=== PATIENT | male | born 1985 | race Caucasian/White ===

== ENCOUNTER 2020-11-18 18:52 | Emergency (ER) | payer OTHER, BC ==
[~2020-11-18] VITALS: Ht 188 cm; Wt 102.1 kg
== END 2020-11-18 21:02 | disposition home or self-care (01) ==
LOC: ED 18:52
DX: S01.81XA Laceration without foreign body of other part of head, initial encounter (principal); Z23 Encounter for immunization; W01.10XA Fall on same level from slipping, tripping and stumbling with subsequent striking against unspecified object, initial encounter
CPT/HCPCS: 12013; 90471; 90715; 99282-25